=== PATIENT | male | born 1980 | race Caucasian/White ===

== ENCOUNTER 2021-05-26 15:41 | Emergency (ER) | payer BC ==
[~2021-05-26] VITALS: Ht 188 cm; Wt 68.0 kg
[2021-05-26] MEDS ORDERED: LORA-258 PO (15:53)
--- NOTE | 2021-05-26 15:56 | NUR ---
PT IS IN ROOM #2B. DR TURNER EVALUATED THE PT.
--- NOTE | 2021-05-26 16:27 | NUR ---
PT WAS D/C'd TO HOME. D/C INSTRUCTIONS GIVEN TO THE PT BY DR YOU.
[2021-05-26 16:28] VITALS: BP 128/78
== END 2021-05-26 16:29 | disposition home or self-care (01) ==
LOC: ER 15:41
DX: F32.A Depression, unspecified (principal); R03.0 Elevated blood-pressure reading, without diagnosis of hypertension
CPT/HCPCS: A4663